=== PATIENT | male | born 1970 | race Two or more races ===

== ENCOUNTER 2023-07-18 16:28 | Emergency (ER) | payer OTHER ==
[~2023-07-18] VITALS: Ht 167.6 cm; Wt 71.2 kg
[2023-07-18 16:47] VITALS: BP 140/82; TEMP 98; O2SAT 100
[2023-07-18] MEDS ORDERED: BENZ-13 PO (19:05)
== END 2023-07-18 19:22 | disposition home or self-care (01) ==
LOC: ER 16:30
DX: R05.9 Cough, unspecified (principal); R04.2 Hemoptysis; F17.210 Nicotine dependence, cigarettes, uncomplicated; Z79.899 Other long term (current) drug therapy
CPT/HCPCS: 71045-TC; 71250-TC